=== PATIENT | female | born 1980 | race African-American/Black ===

== ENCOUNTER 2017-02-08 07:33 | Emergency (ER) | payer OTHER ==
[~2017-02-08] VITALS: Ht 172.7 cm; Wt 85.1 kg
[~2017-02-08 07:33] MED LIST: AMBIEN10 MG PO; BENADRYL50 MG PO; DILAUDID2 MG PO; ENDOCET 5-3251 EACH PO; MILK OF MAGN PO; MOTRIN800 MG PO; NAPROSYN500 MG PO; NAPROXEN500 MG PO; PEPCID20 MG PO; PERCOCET 10/1 TABLET PO; PREDNISONE50 MG PO; PREMARIN0.625 MG PO; SERTRALINE HCL50 MG PO
[2017-02-08 08:16] LABS: HEMATOCRIT 42.2 % (36.0-46.0); MCH 29.6 PG (29.0-34.0); MCHC 32.7 G/DL (30.0-36.0); MCV 90.6 FL (83-99); MEAN PLAT.VOLUME 10.5 uM^3 (9.5-12.4); PLATELET COUNT 151 K/uL (156-360); RBC DIS.WIDTH-CV 13.2 % (11.8-14.6); RBC DIS.WIDTH-SD 43.9 % (39-53); RED BLOOD COUNT 4.66 M/uL (3.80-5.20)
[2017-02-08 08:24] LABS: CHLORIDE 104 mEq/L (99-109); POTASSIUM 3.5 mEq/L (3.7-5.4); SODIUM 137 mEq/L (136-147)
[2017-02-08 08:26] LABS: GLUCOSE 95 mg/dL (70-99)
[2017-02-08 08:27] LABS: ANION GAP 8 MEQ/L (2-14)
[2017-02-08 08:28] LABS: TOTAL BILIRUBIN 0.4 mg/dL (0.0-1.0)
[2017-02-08 08:29] LABS: ALKALINE PHOSPHATASE 62 IU/L (3-129)
[2017-02-08 08:30] LABS: GFR ESTIMATE (CALCULATED) > 59 mL/min/
[2017-02-08 08:31] LABS: UREA NITROGEN (BUN) 10 mg/dL (9-23)
[2017-02-08 08:33] LABS: LIPASE 51 U/L (1.0-51.0)
[2017-02-08 08:57] LABS: ADD MIUA? YES; BILIRUBIN NEGATIVE; BLOOD NEGATIVE; COLOR YELLOW ((YELLOW)); GLUCOSE (STRIP) NEGATIVE; KETONES NEGATIVE; LEUKOCYTES NEGATIVE; NITRITE NEGATIVE; PROTEIN (STRIP) NEGATIVE; SPECIFIC GRAVITY 1.018 (1.000-1.030); UROBILINOGEN 0.2 MG/DL (0.2-1.0)
[2017-02-08 09:09] LABS: BACTERIA NONE SEEN /HPF; EPITHELIAL CELLS RARE /HPF; MUCUS TRACE /LPF; RED BLOOD CELLS 0-5 /HPF (0-5); WHITE BLOOD CELLS 0-5 /HPF (0-5)
[2017-02-08] MEDS ORDERED: ZOFRAN ODT4 MG PO (09:52)
[2017-02-08] MEDS ORDERED: BENTYL20 MG PO (09:52)
[2017-02-08 10:32] VITALS: BP 134/81
== END 2017-02-08 10:33 | disposition home or self-care (01) ==
LOC: EME 07:33
PROVIDERS: Nurse Practitioner Family
DX: K52.9 Noninfective gastroenteritis and colitis, unspecified (principal); R11.2 Nausea with vomiting, unspecified; R19.7 Diarrhea, unspecified; D69.6 Thrombocytopenia, unspecified; R51 Headache; R10.32 Left lower quadrant pain; Z87.19 Personal history of other diseases of the digestive system; F32.9 Major depressive disorder, single episode, unspecified; Z90.710 Acquired absence of both cervix and uterus; Z90.722 Acquired absence of ovaries, bilateral; Z79.890 Hormone replacement therapy; Z88.8 Allergy status to other drugs, medicaments and biological substances
CPT/HCPCS: 80053; 81003; 83690; 85027; 99281; 99284; J1885; J2405; J7030

== ENCOUNTER 2017-02-23 14:52 | Emergency (ER) | payer OTHER ==
[~2017-02-23] VITALS: Ht 172.7 cm; Wt 87.4 kg
[~2017-02-23 14:52] MED LIST changes: +BENTYL20 MG PO; +ZOFRAN ODT4 MG PO
[2017-02-23] MEDS ORDERED: FIORICET 50-301 EACH PO (18:27)
[2017-02-23] MEDS ORDERED: FLEXERIL10 MG PO (18:28)
[2017-02-23 18:45] VITALS: BP 131/90
== END 2017-02-23 18:46 | disposition home or self-care (01) ==
LOC: EME 14:52
DX: R51 Headache (principal)
CPT/HCPCS: 99281; 99284; J1885

== ENCOUNTER 2017-12-31 17:38 | Emergency (ER) | payer OTHER ==
[~2017-12-31] VITALS: Ht 172.7 cm; Wt 75.3 kg
[~2017-12-31 17:38] MED LIST changes: +FIORICET 50-301 EACH PO; +FLEXERIL10 MG PO
[2017-12-31 18:14] LABS: HEMATOCRIT 37.9 % (36.0-46.0); HEMOGLOBIN 12.6 G/DL (11.9-15.5); MCH 30.4 PG (29.0-34.0); MCHC 33.2 G/DL (30.0-36.0); MCV 91.5 FL (83-99); PLATELET COUNT 168 K/uL (156-360); RBC DIS.WIDTH-CV 13.9 % (11.8-14.6); RBC DIS.WIDTH-SD 46.8 % (39-53); RED BLOOD COUNT 4.14 M/uL (3.80-5.20); WHITE BLOOD COUNT 4.8 K/uL (4.1-10.2)
[2017-12-31 18:22] LABS: ALBUMIN 3.8 g/dL (3.2-4.8); CHLORIDE 111 mEq/L (99-109); POTASSIUM 3.8 mEq/L (3.7-5.4); SODIUM 146 mEq/L (136-147)
[2017-12-31 18:25] LABS: GLUCOSE 88 mg/dL (70-99); TOTAL PROTEIN 6.5 g/dL (6.4-8.3)
[2017-12-31 18:27] LABS: TOTAL BILIRUBIN 0.2 mg/dL (0.0-1.0)
[2017-12-31 18:28] LABS: ALKALINE PHOSPHATASE 52 IU/L (3-129); CREATININE 0.8 mg/dL (0.6-1.3); GFR ESTIMATE (CALCULATED) > 59 mL/min/
[2017-12-31 18:29] LABS: UREA NITROGEN (BUN) 15 mg/dL (9-23)
[2017-12-31 18:30] LABS: AST (GOT) 20 IU/L (2-34)
[2017-12-31 18:31] LABS: ALT (GPT) 13 IU/L (3-49)
[2017-12-31 18:37] LABS: QUANTITATIVE HCG < 4.0 MIU/ML
[2017-12-31 21:22] LABS: APPEARANCE CLOUDY ((CLEAR)); BILIRUBIN NEGATIVE; BLOOD NEGATIVE; COLOR YELLOW ((YELLOW)); GLUCOSE (STRIP) NEGATIVE; KETONES NEGATIVE; LEUKOCYTES NEGATIVE; NITRITE NEGATIVE; PROTEIN (STRIP) 30
[2017-12-31 21:29] LABS: BACTERIA RARE /HPF; EPITHELIAL CELLS RARE /HPF; MUCUS TRACE /LPF; UCUL ADDED? NO; WHITE BLOOD CELLS 0-5 /HPF (0-5)
[2017-12-31] MEDS ORDERED: SUDAFED PE PRE1 EAC3 PO (21:56)
[2017-12-31] MEDS ORDERED: COMPAZINE10 MG PO (21:56)
[2017-12-31 22:16] VITALS: BP 123/74
== END 2017-12-31 22:16 | disposition home or self-care (01) ==
LOC: RME 17:38 → EME 17:38 → RME 22:16
DX: R11.2 Nausea with vomiting, unspecified (principal); R10.9 Unspecified abdominal pain; R09.81 Nasal congestion; F32.9 Major depressive disorder, single episode, unspecified; Z88.5 Allergy status to narcotic agent; Z90.710 Acquired absence of both cervix and uterus; Z90.13 Acquired absence of bilateral breasts and nipples
CPT/HCPCS: 80053; 81003; 84702; 85027; 99281; 99284; Q0169